=== PATIENT | female | born 1990 | race Caucasian/White ===

== ENCOUNTER 2017-10-14 13:19 | Emergency (ER) | payer MEDICAID ==
[~2017-10-14] VITALS: Ht 170.2 cm; Wt 55.9 kg
[~2017-10-14 13:19] MED LIST: BACDS PO; CLIN-79 PO; CLIN150C2 PO; HYDR-565 PO; HYDR-569 PO; HYDR1TAB PO; MOT200T PO; NITR100C6 PO; ONDA4TAB12 PO; ONDA4TAB6 PO; ONDA8TAB6 PO; ONDA8TAB9 PO; PHEN-888 PO
[2017-10-14 13:22] VITALS: BP 137/81
[2017-10-14 13:42] LABS: URINE HCG POSITIVE (NEG)
== END 2017-10-14 14:43 | disposition home or self-care (01) ==
LOC: ER 13:19
DX: Z32.01 Encounter for pregnancy test, result positive (principal); Z86.14 Personal history of Methicillin resistant Staphylococcus aureus infection; Z88.5 Allergy status to narcotic agent; Z79.899 Other long term (current) drug therapy; Z56.0 Unemployment, unspecified
CPT/HCPCS: 81025; 99283

== ENCOUNTER 2017-10-20 22:56 | Emergency (ER) | payer MEDICAID ==
[~2017-10-20] VITALS: Ht 170.2 cm; Wt 56.5 kg
[2017-10-20 23:35] VITALS: BP 111/95
[2017-10-20 23:39] LABS: CLARITY,URINE CLOUDY (Clear); COLOR,URINE AMBER (Yellow); GLUCOSE, URINE NEGATIVE (Neg); KETONES,URINE NEGATIVE (Neg); LEUKOCYTE ESTERASE ,URINE TRACE (Neg); NITRITES, URINE NEGATIVE (Neg); OCCULT BLOOD,URINE LARGE (Neg); PH,URINE 5.5 (4.8-8.0); PROTEIN,URINE 30 mg/dl (Neg); UROBILINOGEN,URINE 0.2 E.U/dL (0.2-1.0)
[2017-10-20 23:41] LABS: UA COLLECTION TYPE CLN CATCH MIDSTREAM
[2017-10-20 23:48] LABS: BACTERIA,URINE 1+ /HPF (Neg); RBC,URINE TNTC /HPF (0-2); WBC,URINE 0-4 /HPF (0-4)
[2017-10-20 23:49] LABS: SQUAMOUS EPITHELIAL CELL,UR MODERATE /LPF (FEW)
[2017-10-21] MEDS ORDERED: acetaminophen 325mg tablet PO ONE (00:05)
[2017-10-21] MEDS ORDERED: morphine 4 MG/ML inj SYRINge IM ONE (00:30)
[2017-10-21 00:35] LABS: HEMOGLOBIN 13.9 g/dl (12.0-16.0); MEAN CORPUSCULAR HEMOGLOBIN 29.9 PG (27.0-31.0); MEAN CORPUSCULAR VOLUME 87.9 FL (78-98); MEAN PLATELET VOLUME 7.6 FL (7.4-10.4); PLATELET COUNT 354 X10'3 (140-440); RED BLOOD COUNT 4.67 X10'6 (4.20-5.60); RED CELL DISTRIBUTION WIDTH 12.3 % (11.5-14.5); WHITE BLOOD COUNT 10.4 X10'3 (4.5-11.0)
== END 2017-10-21 00:59 | disposition left against medical advice (07) ==
LOC: ER 22:56
DX: O46.91 Antepartum hemorrhage, unspecified, first trimester (principal); O26.891 Other specified pregnancy related conditions, first trimester; R10.30 Lower abdominal pain, unspecified; O99.331 Smoking (tobacco) complicating pregnancy, first trimester; F17.210 Nicotine dependence, cigarettes, uncomplicated; Z88.5 Allergy status to narcotic agent; Z56.0 Unemployment, unspecified; Z3A.01 Less than 8 weeks gestation of pregnancy
CPT/HCPCS: 36415; 81001; 84702; 85027; 85610; 86900; 86901; 87088; 87210; 99284; A6449; J2270

== ENCOUNTER 2018-01-12 05:48 | Emergency (ER) | payer MEDICAID ==
[~2018-01-12] VITALS: Ht 170.2 cm; Wt 42.9 kg
[2018-01-12] MEDS ORDERED: normal saline 1000ML IV soln IVB ONE ×2 (06:10)
[2018-01-12] MEDS ORDERED: metoclopramide 5 mg/ml inj IV ONE (06:10)
[2018-01-12 06:33] LABS: BASOPHILS % (AUTO) 0.5 % (0-1); EOSINOPHILS # (AUTO) 0.1 X10'3 (0-0.9); HEMATOCRIT 41.2 % (35.0-45.0); HEMOGLOBIN 14.4 g/dl (12.0-16.0); LYMPHOCYTES # (AUTO) 1.5 X10'3 (1.1-4.8); MEAN CORPUSCULAR VOLUME 88.5 FL (78-98); MEAN PLATELET VOLUME 7.4 FL (7.4-10.4); MONOCYTES # (AUTO) 0.3 X10'3 (0-0.9); NEUTROPHILS # (AUTO) 5.6 X10'3 (1.8-7.7); NEUTROPHILS % (AUTO) 74.5 % (42-75); PLATELET COUNT 312 X10'3 (140-440); RED BLOOD COUNT 4.65 X10'6 (4.20-5.60); RED CELL DISTRIBUTION WIDTH 14.4 % (11.5-14.5); WHITE BLOOD COUNT 7.5 X10'3 (4.5-11.0)
[2018-01-12 06:46] LABS: ALBUMIN 3.7 G/DL (3.4-5.0); ANION GAP 11 (8-16); BILIRUBIN,TOTAL 0.5 MG/DL (0.1-1.0); BLOOD UREA NITROGEN 9 MG/DL (7-18); BUN/CREATININE RATIO 14.5 (6.6-38.0); CALCIUM 9.7 MG/DL (8.5-10.1); CHLORIDE 102 MMOL/L (99-107); CREATININE 0.62 MG/DL (0.40-0.90); GLUCOSE 124 MG/DL (70-104); POTASSIUM 4.2 MMOL/L (3.5-5.1); SODIUM 139 MMOL/L (135-145); TOTAL CARBON DIOXIDE 26.3 MMOL/L (24-32); TOTAL PROTEIN 7.9 G/DL (6.4-8.2); eGFR > 90 ML/MIN
[2018-01-12 06:47] LABS: ALANINE AMINOTRANSFERASE 23 U/L (12-78); ALBUMIN/GLOBULIN RATIO 0.9 (1.1-1.5); ALKALINE PHOSPHATASE 89 IU/L (46-116); ASPARTATE AMINO TRANSFERASE 15 U/L (10-37)
[2018-01-12 07:14] LABS: BETA HCG,QUANTITATIVE 75137 mIU/ml
[2018-01-12 07:54] LABS: CLARITY,URINE CLEAR (Clear); COLOR,URINE YELLOW (Yellow); GLUCOSE, URINE NEGATIVE (Neg); KETONES,URINE >=80 mg/dl (Neg); LEUKOCYTE ESTERASE ,URINE NEGATIVE (Neg); NITRITES, URINE NEGATIVE (Neg); OCCULT BLOOD,URINE SMALL (Neg); PROTEIN,URINE TRACE mg/dl (Neg); UROBILINOGEN,URINE 0.2 E.U/dL (0.2-1.0)
[2018-01-12 07:56] LABS: UA COLLECTION TYPE CLN CATCH MIDSTREAM
[2018-01-12 08:01] LABS: BACTERIA,URINE 2+ /HPF (Neg); MUCUS STRANDS NONE SEEN /LPF (Neg); RBC,URINE 0-2 /HPF (0-2); SQUAMOUS EPITHELIAL CELL,UR MANY /LPF (FEW); WBC,URINE 0-4 /HPF (0-4)
[2018-01-12 08:06] VITALS: BP 107/55
[2018-01-12] MEDS ORDERED: METO10TA3 PO (08:24)
[2018-01-12] MEDS ORDERED: ONDA4TAB9 PO (09:12)
[2018-01-12] MEDS ORDERED: ondansetron/PF 4mg/2ml inj IV ONE (09:15)
== END 2018-01-12 09:43 | disposition home or self-care (01) ==
LOC: ER 05:48
DX: O21.9 Vomiting of pregnancy, unspecified (principal); Z3A.09 9 weeks gestation of pregnancy; Z86.14 Personal history of Methicillin resistant Staphylococcus aureus infection; Z88.5 Allergy status to narcotic agent; Z79.899 Other long term (current) drug therapy; Z56.0 Unemployment, unspecified
CPT/HCPCS: 36415; 80053; 81001; 84702; 85025; 96361; 96374; 96375; 99284; J2765; J7030

== ENCOUNTER 2019-01-09 08:00 | Emergency (ER) | payer MEDICAID ==
[~2019-01-09] VITALS: Ht 170.2 cm; Wt 59.1 kg
[~2019-01-09 08:00] MED LIST changes: -CLIN-79 PO; +CLIN150C8 PO; +HYDR-4353 PO; +HYDR-4383 PO; -HYDR-565 PO; -HYDR-569 PO
[2019-01-09 08:23] VITALS: BP 107/59
[2019-01-09] MEDS ORDERED: normal saline 1000ML IV soln IVB ONE (08:45)
[2019-01-09] MEDS ORDERED: pantoprazole 40 MG vial IV ONE (08:45)
[2019-01-09] MEDS ORDERED: proCHLORperazine 10 MG/2 ml inj IV ONE (08:45)
[2019-01-09] MEDS ORDERED: diphenhydrAMINE 50 mg/ml inj IV ONE (08:45)
[2019-01-09 09:05] LABS: BASOPHILS % (AUTO) 0.4 % (0-1); EOSINOPHILS # (AUTO) 0.1 X10'3 (0-0.9); EOSINOPHILS % (AUTO) 1.9 % (0-6); HEMATOCRIT 39.4 % (35.0-45.0); HEMOGLOBIN 13.6 g/dl (12.0-16.0); LYMPHOCYTES # (AUTO) 1.7 X10'3 (1.1-4.8); LYMPHOCYTES % (AUTO) 22.7 % (21-51); MEAN CORPUSCULAR HGB CONC 34.5 g/dL (33.0-36.5); MEAN CORPUSCULAR VOLUME 86.8 FL (78-98); MEAN PLATELET VOLUME 7.1 FL (7.4-10.4); MONOCYTES # (AUTO) 0.5 X10'3 (0-0.9); MONOCYTES % (AUTO) 6.4 % (2-12); NEUTROPHILS % (AUTO) 68.6 % (42-75); PLATELET COUNT 306 X10'3 (140-440); RED BLOOD COUNT 4.54 X10'6 (4.20-5.60); RED CELL DISTRIBUTION WIDTH 12.8 % (11.5-14.5); WHITE BLOOD COUNT 7.3 X10'3 (4.5-11.0)
[2019-01-09 09:15] LABS: ALANINE AMINOTRANSFERASE 26 U/L (12-78); ALBUMIN 3.4 G/DL (3.4-5.0); ALBUMIN/GLOBULIN RATIO 0.9 (1.1-1.5); ALKALINE PHOSPHATASE 113 IU/L (46-116); ANION GAP 9 (8-16); ASPARTATE AMINO TRANSFERASE 17 U/L (10-37); BILIRUBIN,TOTAL 0.3 MG/DL (0.1-1.0); BLOOD UREA NITROGEN 10 MG/DL (7-18); BUN/CREATININE RATIO 17.9 (6.6-38.0); CALCIUM 9.5 MG/DL (8.5-10.1); CHLORIDE 100 MMOL/L (99-107); CREATININE 0.56 MG/DL (0.40-0.90); GLUCOSE 106 MG/DL (70-104); POTASSIUM 4.3 MMOL/L (3.5-5.1); SODIUM 136 MMOL/L (135-145); TOTAL CARBON DIOXIDE 27.1 MMOL/L (24-32); TOTAL PROTEIN 7.4 G/DL (6.4-8.2); eGFR > 90 ML/MIN
[2019-01-09 09:23] LABS: URINE HCG POSITIVE (NEG)
[2019-01-09 09:27] LABS: CLARITY,URINE CLEAR (Clear); COLOR,URINE YELLOW (Yellow); GLUCOSE, URINE NEGATIVE (Neg); KETONES,URINE NEGATIVE (Neg); LEUKOCYTE ESTERASE ,URINE NEGATIVE (Neg); NITRITES, URINE NEGATIVE (Neg); OCCULT BLOOD,URINE TRACE-INTACT (Neg); PROTEIN,URINE NEGATIVE (Neg); UROBILINOGEN,URINE 0.2 E.U/dL (0.2-1.0)
[2019-01-09 09:28] LABS: UA COLLECTION TYPE CLN CATCH MIDSTREAM
[2019-01-09 09:41] LABS: SQUAMOUS EPITHELIAL CELL,UR MANY /LPF (FEW)
[2019-01-09 09:43] LABS: BACTERIA,URINE FEW /HPF (Neg); TRANSITIONAL EPI CELLS,URINE FEW /HPF; WBC,URINE 0-4 /HPF (0-4)
[2019-01-09 10:22] LABS: BETA HCG,QUANTITATIVE 17294 mIU/ml
[2019-01-09] MEDS ORDERED: ONDA4TAB6 PO (10:41)
== END 2019-01-09 10:49 | disposition home or self-care (01) ==
LOC: ER 08:01
DX: R11.2 Nausea with vomiting, unspecified (principal); Z32.01 Encounter for pregnancy test, result positive; F12.90 Cannabis use, unspecified, uncomplicated; F15.90 Other stimulant use, unspecified, uncomplicated; F11.90 Opioid use, unspecified, uncomplicated; Z56.0 Unemployment, unspecified; Z98.890 Other specified postprocedural states; Z88.5 Allergy status to narcotic agent; Z79.899 Other long term (current) drug therapy
CPT/HCPCS: 36415; 80053; 81001; 81025; 84702; 85025; 85610; 87502; 87503; 93005; 96374; 96375; 99284; C9113; J0780; J1200; J7030; 96361

== ENCOUNTER 2019-01-20 08:51 | Emergency (ER) | payer MEDICAID ==
[~2019-01-20] VITALS: Ht 170.2 cm; Wt 57.7 kg
[2019-01-20] MEDS ORDERED: ondansetron/PF 4mg/2ml inj IV ONE (09:05)
[2019-01-20] MEDS ORDERED: normal saline 1000ML IV soln IVB ONE (09:05)
[2019-01-20] MEDS ORDERED: LORazepam 2 mg/ml vial IV ONE (09:25)
--- NOTE | 2019-01-20 09:50 | NUR ---
pt states she is not planning on keeping her fetus. she has hx of one spontaneous and the other surgically done. planning to have this one aborted too. pt requesting dilaudid for pain but the PA states he will not be giving the pt dilaudid.
--- NOTE | 2019-01-20 10:11 | NUR ---
The labor relations analyst tried once and was unsuccessful and then the pt refused to be poked again. I attempted to draw blood from IV line but it would not draw. other labor relations analyst looked at pt's arms and did not find any vein he felt would work for a blood draw. the pt still asking for pain meds. PA aware but pt informed that unless she is cooperative with lab draws there is not much other treatment we can give her. pt has track spaulding up and down her arms.
--- NOTE | 2019-01-20 10:40 | NUR ---
other central lab technician has now been able to get a blood sample
[2019-01-20 10:50] LABS: BASOPHILS % (AUTO) 0.2 % (0-1); EOSINOPHILS % (AUTO) 0 % (0-6); HEMATOCRIT 35.2 % (35.0-45.0); HEMOGLOBIN 12.4 g/dl (12.0-16.0); LYMPHOCYTES % (AUTO) 13.4 % (21-51); MEAN CORPUSCULAR HEMOGLOBIN 30.7 PG (27.0-31.0); MEAN CORPUSCULAR HGB CONC 35.2 g/dL (33.0-36.5); MEAN CORPUSCULAR VOLUME 87.1 FL (78-98); MEAN PLATELET VOLUME 7.5 FL (7.4-10.4); MONOCYTES # (AUTO) 0.3 X10'3 (0-0.9); MONOCYTES % (AUTO) 4.1 % (2-12); NEUTROPHILS % (AUTO) 82.3 % (42-75); PLATELET COUNT 295 X10'3 (140-440); RED BLOOD COUNT 4.04 X10'6 (4.20-5.60); RED CELL DISTRIBUTION WIDTH 13.3 % (11.5-14.5); WHITE BLOOD COUNT 7.3 X10'3 (4.5-11.0)
--- NOTE | 2019-01-20 10:59 | NUR ---
pt up to bathroom to get urine sample
[2019-01-20 11:03] LABS: ALANINE AMINOTRANSFERASE 14 U/L (12-78); ALBUMIN 3.3 G/DL (3.4-5.0); ALBUMIN/GLOBULIN RATIO 0.9 (1.1-1.5); ALKALINE PHOSPHATASE 83 IU/L (46-116); ANION GAP 7 (8-16); ASPARTATE AMINO TRANSFERASE 10 U/L (10-37); BILIRUBIN,TOTAL 0.4 MG/DL (0.1-1.0); BLOOD UREA NITROGEN 16 MG/DL (7-18); BUN/CREATININE RATIO 28.6 (6.6-38.0); CALCIUM 8.1 MG/DL (8.5-10.1); CHLORIDE 106 MMOL/L (99-107); CREATININE 0.56 MG/DL (0.40-0.90); GLUCOSE 95 MG/DL (70-104); POTASSIUM 3.8 MMOL/L (3.5-5.1); SODIUM 136 MMOL/L (135-145); TOTAL CARBON DIOXIDE 23.2 MMOL/L (24-32); TOTAL PROTEIN 6.8 G/DL (6.4-8.2); eGFR > 90 ML/MIN
[2019-01-20 11:22] LABS: CLARITY,URINE CLOUDY (Clear); COLOR,URINE YELLOW (Yellow); GLUCOSE, URINE NEGATIVE (Neg); KETONES,URINE >=80 mg/dl (Neg); LEUKOCYTE ESTERASE ,URINE TRACE (Neg); NITRITES, URINE NEGATIVE (Neg); OCCULT BLOOD,URINE TRACE-LYSED (Neg); PROTEIN,URINE NEGATIVE (Neg); UROBILINOGEN,URINE 0.2 E.U/dL (0.2-1.0)
[2019-01-20] MEDS ORDERED: morphine 4 MG/ML inj SYRINge IV ONE (11:25)
[2019-01-20 11:31] LABS: UA COLLECTION TYPE CLN CATCH MIDSTREAM
[2019-01-20 11:32] LABS: SQUAMOUS EPITHELIAL CELL,UR MANY /LPF (FEW)
[2019-01-20 11:33] LABS: BACTERIA,URINE 1+ /HPF (Neg); RBC,URINE 0-2 /HPF (0-2)
[2019-01-20 11:47] VITALS: BP 98/65
== END 2019-01-20 11:49 | disposition home or self-care (01) ==
LOC: ER 08:52
DX: O21.1 Hyperemesis gravidarum with metabolic disturbance (principal); O99.321 Drug use complicating pregnancy, first trimester; F12.90 Cannabis use, unspecified, uncomplicated; F15.90 Other stimulant use, unspecified, uncomplicated; F11.90 Opioid use, unspecified, uncomplicated; Z56.0 Unemployment, unspecified; Z3A.12 12 weeks gestation of pregnancy; Z86.14 Personal history of Methicillin resistant Staphylococcus aureus infection; Z88.5 Allergy status to narcotic agent; Z79.899 Other long term (current) drug therapy
CPT/HCPCS: 36415; 80053; 81001; 85025; 96361; 96374; 96375; 99284; J2060; J2270; J2405; J7030; 99283; 99285

== ENCOUNTER 2019-01-21 10:46 | Emergency (ER) | payer MEDICAID ==
[~2019-01-21] VITALS: Ht 170.2 cm; Wt 60.0 kg
[2019-01-21] MEDS ORDERED: proCHLORperazine 10 MG/2 ml inj IV ONE (11:20)
[2019-01-21] MEDS ORDERED: normal saline 1000ML IV soln IVB ONE (11:20)
[2019-01-21 12:38] VITALS: BP 102/66
== END 2019-01-21 12:45 | disposition home or self-care (01) ==
LOC: ER 10:46
DX: O21.0 Mild hyperemesis gravidarum (principal); F12.90 Cannabis use, unspecified, uncomplicated; F15.90 Other stimulant use, unspecified, uncomplicated; F11.90 Opioid use, unspecified, uncomplicated; Z3A.01 Less than 8 weeks gestation of pregnancy; Z86.14 Personal history of Methicillin resistant Staphylococcus aureus infection; Z98.890 Other specified postprocedural states; Z56.0 Unemployment, unspecified; Z88.5 Allergy status to narcotic agent; Z79.899 Other long term (current) drug therapy
CPT/HCPCS: 96361; 96374; 99283; J0780; J7030